=== PATIENT | female | born 1990 | race Caucasian/White ===

== ENCOUNTER 2017-07-10 03:19 | Emergency (ER) | payer BC ==
[~2017-07-10] VITALS: Ht 157.5 cm; Wt 70.0 kg
[2017-07-10] MEDS ORDERED: KETOROLAC 30MG/ML VIAL IV STA (06:29)
[2017-07-10] MEDS ORDERED: PENICILLIN G BENZATHINE 1,200,000 UNITS/2ML SYR IM ONE (06:30)
[2017-07-10] MEDS ORDERED: DEXAMETHASONE 10 MG/ML VIAL IV ONE (06:30)
[2017-07-10 09:05] VITALS: BP 117/63
== END 2017-07-10 09:07 | disposition home or self-care (01) ==
LOC: ER 03:19
DX: J03.90 Acute tonsillitis, unspecified (principal); Z87.891 Personal history of nicotine dependence
CPT/HCPCS: 81025; 96372; 96374; 96375; 99284; J0561; J1100; J1885; J7030; Z7610

== ENCOUNTER 2017-07-12 10:53 | Emergency (ER) | payer BC ==
[~2017-07-12] VITALS: Ht 160 cm; Wt 70.0 kg
[2017-07-12] MEDS ORDERED: IBUP-2028 PO (10:58)
[2017-07-12 17:40] LABS: CLARITY URINE CLEAR (CLEAR); COLOR URINE YELLOW (YELLOW); GLUCOSE URINE NEGATIVE (NEGATIVE); KETONES URINE NEGATIVE (NEGATIVE); LEUKOCYTE ESTERASE URINE TRACE (NEGATIVE); NITRITE URINE NEGATIVE (NEGATIVE); OCCULT BLOOD URINE NEGATIVE (NEGATIVE); PH URINE 5.5 (4.5-8.0); PROTEIN URINE NEGATIVE (NEGATIVE); SPECIFIC GRAVITY URINE 1.015 (1.005-1.030); UROBILINOGEN URINE 0.2 E.U./dL (0.2-1.0)
[2017-07-12 17:52] LABS: *AMPHETAMINES SCREEN URINE NEGATIVE (NEGATIVE); *BARBITURATES SCREEN URINE NEGATIVE (NEGATIVE); *BENZODIAZEPINES SCREEN URINE NEGATIVE (NEGATIVE); *COCAINE SCREEN URINE NEGATIVE (NEGATIVE); CANNABINOID URINE SCREEN NEGATIVE (NEGATIVE); METHADONE URINE SCREEN NEGATIVE (NEGATIVE); OPIATES URINE SCREEN NEGATIVE (NEGATIVE); PHENCYCLIDINE URINE SCREEN NEGATIVE (NEGATIVE)
[2017-07-12] MEDS: DEXAMETHASONE 0.5MG/5ML ORAL SYR PO NR ×2 (19:04→19:13)
[2017-07-12 21:00] VITALS: BP 115/69
== END 2017-07-12 21:33 | disposition home or self-care (01) ==
LOC: ER 10:53
DX: E86.0 Dehydration (principal); J03.90 Acute tonsillitis, unspecified; N39.0 Urinary tract infection, site not specified; R82.71 Bacteriuria
CPT/HCPCS: 80305; 81001; 81025; 87070; 87430; 87804; 99284; J8540; Z7610